=== PATIENT | male | born 1955 | race Caucasian/White ===

== ENCOUNTER 2018-03-04 05:52 | Day surgery (SDC) | payer MEDICARE, BC ==
[2018-03-04] MEDS: POLYMYXIN/BACITRACIN 1L IRRIG
[2018-03-04] MEDS: DEXAMETHASONE 4 MG/ML 1 ML INJ INJ
[2018-03-04] MEDS: LIDOCAINE 1% (MPF) 30 ML INJ INJ
[2018-03-04] MEDS ORDERED: CEFAZOLIN 1 GM INJ (06:54)
[2018-03-04] MEDS ORDERED: PROPOFOL 20 ML (06:54)
[2018-03-04] MEDS ORDERED: ONDANSETRON 4 MG INJ (06:55)
[2018-03-04] MEDS ORDERED: FENTAnyl 50 MCG/ML VIAL (06:56)
[2018-03-04] MEDS ORDERED: LIDOCAINE 2% (SDV) 5 ML INJ (07:00)
[2018-03-04] MEDS ORDERED: LIDOCAINE 1% (MPF) 30 ML INJ ×2 (07:12→07:43)
[2018-03-04] MEDS ORDERED: KETOROLAC 30 MG INJ (07:31)
[2018-03-04] MEDS ORDERED: NA BICARBONATE 8.4% 50 ML SYG (07:52)
[2018-03-04] MEDS ORDERED: DEXAMETHASONE 4 MG/ML 1 ML INJ (07:52)
[2018-03-04] MEDS ORDERED: SODIUM BICARBONATE (IV ADD) 50 ML (07:54)
[2018-03-04] MEDS ORDERED: FENTAnyl 50 MCG/ML VIAL IV (08:30)
[2018-03-04] MEDS ORDERED: HYDROmorphONE (0.2 MG/ML) 10ML SYG IV (08:30)
[2018-03-04] MEDS ORDERED: ONDANSETRON 4 MG INJ IV (08:30)
== END 2018-03-04 10:43 | disposition home or self-care (01) ==
LOC: SDS 05:52
DX: M20.42 Other hammer toe(s) (acquired), left foot (principal); M21.612 Bunion of left foot; I10 Essential (primary) hypertension; F17.200 Nicotine dependence, unspecified, uncomplicated
CPT/HCPCS: 28285; 88304; 88311